=== PATIENT | male | born 1990 | race Hispanic/Latino ===

== ENCOUNTER 2017-12-25 23:13 | Emergency (ER) | payer SELFPAY ==
[2017-12-25 23:45] LABS: Bilirubin Negative (Negative); Blood, Urine Negative (Negative); Clarity CLEAR (Clear); Glucose, Urine (Dipstick) Negative (Negative); Leukocyte Negative (Negative); Nitrite Negative (Negative); Protein, Urine (Dipstick) Negative (Neg-Trace); Specific Gravity, Urine 1.028 (1.002-1.036); Urobilinogen 0.2 mg/dL (0.2-1.0)
--- NOTE | 2017-12-26 07:32 | ULT ---
SCROTAL ULTRASOUND WITH DOPPLER COLOR FLOW AND SPECTRAL ANALYSIS: CLINICAL HISTORY: Scrotal pain. FINDINGS: Doppler evaluation reveals flow to each testis, with waveforms documented. No evidence of an intrate sticular mass, bilaterally. Epididymal cyst formation is seen on the left. Varicoceles are noted bi laterally. There is evidence of testicular microlithiasis without evidence of an intratesticular mas s. IMPRESSION: 1. No sonographic evidence of testicular torsion or mass. 2. Testicular microlithiasis. 3. Bilateral varicocele formation which is accentuated by Valsalva maneuver. POS: SUZANNEK
[2017-12-29 22:54] LABS: Chlamydia by PCR Not Detected (NotDetected); GC by PCR Not Detected (NotDetected)
== END 2017-12-26 01:59 | disposition short-term general hospital (02) ==
LOC: ERS 23:13
DX: N50.819 Testicular pain, unspecified (principal)
CPT/HCPCS: 76870; 81003; 87491; 87591; 93976

== ENCOUNTER 2019-01-22 00:54 | Emergency (ER) | payer SELFPAY ==
[2019-01-22 02:38] LABS: #Basophils 0.1 thou/uL (0.0-0.2); #Eosinphils 0.2 thou/uL (0.0-0.7); #Monocytes 0.7 thou/uL (0.11-0.59); #Neutrophils 2.3 thou/uL (1.40-6.50); %Basophils 1.1 % (0.0-1.0); %Monocytes 10.6 % (0.0-10.0); %Neutrophils 36.3 % (42.0-75.0); Hemoglobin 14.2 g/dL (14.0-18.0); Mean Corpuscular Hemoglobin 32.4 pg (27.0-31.0); Mean Corpuscular Volume 92.6 fL (78.0-98.0); Mean Platelet Volume 9.5 fL (7.4-10.4); Platelet Count 173 thou/uL (130-400); RBC Distribution Width 12.3 % (11.5-14.5); Red Blood Cell (RBC) Count 4.38 mill/uL (4.70-6.10); White Blood Cell (WBC) Count 6.2 thou/uL (4.8-10.8)
[2019-01-22 03:00] LABS: ALT (SGPT) 36 U/L (8-55); AST (SGOT) 21 U/L (5-34); Albumin 4.7 g/dL (3.5-5.0); Alkaline Phosphatase 90 U/L (40-110); Anion Gap 13 mmol/L (10-20); BUN (Urea Nitrogen) 16 mg/dL (8.9-20.6); Bilirubin, Total 0.4 mg/dL (0.2-1.2); Calc. Creatinine Clearance 0 mL/min (70-130); Calcium 9.1 mg/dL (7.8-10.44); Carbon Dioxide 24 mmol/L (22-29); Chloride 106 mmol/L (98-107); Estimated GFR-MDRD Greater than 90; Globulin 2.5 g/dL (2.4-3.5); Glucose 108 mg/dL (70-105); Potassium 3.9 mmol/L (3.5-5.1); Protein, Total 7.2 g/dL (6.0-8.3); Sodium 139 mmol/L (136-145)
--- NOTE | 2019-01-22 07:57 | CT ---
PRELIMINARY REPORT/[facility]/EMERGENCY AFTER HOURS PROCEDURE: PROCEDURE INFORMATION: Exam: CT Chest Without Contrast Exam date and time: 01/22/2019 2:37 AM Clinical history: 28 years old, male; Patient HX: Er 12. 28/m PT presents with complaint of cough for the past two months, worse this week. States he is also having night sweats and fatigue TECHNIQUE: Imaging protocol: Computed tomography of the chest without contrast. COMPARISON: No relevant prior studies available. FINDINGS: Lungs: No consolidation. No masses. Pleural space: No pneumothorax. No pleural effusion. Heart: No cardiomegaly. No pericardial effusion. Aorta: No aortic aneurysm. Lymph nodes: No enlarged lymph nodes. Bones/joints: No acute fracture. Soft tissues: No acute findings. IMPRESSION: No acute findings. Thank you for allowing us to participate in the care of your patient. Dictated and Authenticated by: Evan Gonzalez MD 01/22/2019 3:22 AM Central Time ([place] & [place]) CHEST CT WITHOUT CONTRAST: HISTORY: Cough. COMPARISON: None. FINDINGS: Limited evaluation of the mediastinum. No acute abnormality. Visualized upper abdomen is unremarkable . Trachea and central bronchi are patent. No masses or consolidation. No pleural effusion or pneumothor ax. No osseous abnormality IMPRESSION: 1. This report is in agreement with the preliminary report by [facility]. 2. No acute cardiopulmonary process. Transcribed Date/Time: 01/22/2019 8:02 AM
--- NOTE | 2019-01-22 09:02 | RAD ---
PA AND LATERAL VIEWS CHEST: Date: 01/22/19 HISTORY: Cough. FINDINGS: The heart size is normal. The lungs are expanded without focal areas of consolidation, pneumothoraces , or pleural effusions. No acute osseous abnormalities are seen. IMPRESSION: No radiographic evidence of acute cardiopulmonary process. POS: OFF
== END 2019-01-22 03:43 | disposition home or self-care (01) ==
LOC: ERS 00:54
DX: R07.89 Other chest pain (principal); R05 Cough
CPT/HCPCS: 36415; 71046; 71250; 80053; 85025

== ENCOUNTER 2022-03-06 09:22 | Outpatient (CLI) | payer OTHER | END 2022-03-06 09:23 | disposition home or self-care (01) | LOC: BICULT 09:22 | PROVIDERS: ATTEND Nurse Practitioner Family | DX: R10.12 Left upper quadrant pain (principal); K76.0 Fatty (change of) liver, not elsewhere classified; Q63.1 Lobulated, fused and horseshoe kidney | CPT/HCPCS: 76700 ==